=== PATIENT | female | born 2000 | race African-American/Black ===

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

== ENCOUNTER 2023-12-28 07:18 | Inpatient (IN) ==
[2023-12-28 16:51] LABS: BASOPHILS # (AUTO) 0.2 X10^3/uL (0.0-0.1); BASOPHILS % (AUTO) 0.8 % (0.2-1.0); EOSINOPHILS % (AUTO) 0.1 % (0.9-2.9); HEMATOCRIT 27.9 % (36.0-47.0); HEMOGLOBIN 9.2 g/dL (12.0-16.0); LYMPHOCYTES % (AUTO) 9.5 % (21.0-51.0); MEAN CORPUSCULAR HEMOGLOBIN 26.5 pg (27.0-34.0); MEAN CORPUSCULAR HGB CONC 32.8 g/dL (33.0-35.0); MEAN CORPUSCULAR VOLUME 80.7 fL (80.0-100.0); MEAN PLATELET VOLUME 8.4 fL (7.4-11.0); MONOCYTES # (AUTO) 1.2 x10^3/uL (0.3-0.8); MONOCYTES % (AUTO) 5.6 % (0.0-13.0); NEUTROPHILS # (AUTO) 17.5 x10^3/uL (2.2-4.8); PLATELET COUNT 384 X10^3/uL (150.0-450.0); RED BLOOD COUNT 3.46 X10^6/uL (3.5-5.4); RED CELL DISTRIBUTION WIDTH 13.7 % (11.6-16.5); WHITE BLOOD COUNT 20.8 X10^3/uL (3.6-10.0)
[2023-12-28 16:59] LABS: BLOOD UREA NITROGEN 7 mg/dL (7-18); CALCIUM 8.9 mg/dL (8.5-10.1); CARBON DIOXIDE 24.9 mmol/L (21-32); CHLORIDE 103 mmol/L (98-107); GLUCOSE 91 mg/dL (65-99); POTASSIUM 3.5 mmol/L (3.5-5.1); SODIUM 136 mmol/L (136-145); eGFR NON BLACK RACES > 60 (>60)
[2023-12-28 16:59] LABS: BILIRUBIN,URINE NEGATIVE (NEGATIVE); BLOOD/HEMOGLOBIN,URINE 2+ (NEGATIVE); GLUCOSE, URINE NEGATIVE (NEGATIVE); KETONES,URINE NEGATIVE (NEGATIVE); LEUKOCYTE ESTERASE ,URINE NEGATIVE (NEGATIVE); NITRITES,URINE NEGATIVE (NEGATIVE); PROTEIN,URINE 2+ (NEGATIVE); UROBILINOGEN,URINE NORMAL (NORMAL)
[2023-12-28 17:01] LABS: INR 0.99 (0.8-1.3)
[2023-12-28 17:08] LABS: APPEARANCE,URINE SLIGHTLY HAZY (CLEAR); COLOR,URINE YELLOW (YELLOW)
[2023-12-28 17:09] LABS: BACTERIA,URINE TRACE /HPF (NEGATIVE); RBC,URINE 0-2 /HPF (0-3); RENAL EPITHELIAL CELLS,URINE RARE /HPF (NEGATIVE); SQUAMOUS EPITHELIAL CELL,UR FEW /HPF (NEGATIVE)
[2023-12-29] MEDS ORDERED: D5 1/2 NS 1,000 ML 1,000 ML IV SCH (06:28)
[2023-12-29] MEDS: NOZIN NASAL SANITIZER TP ONE (06:29)
[2023-12-29] MEDS: LR 1,000 ML IV 1,000 ML IV ONE (06:45)
[2023-12-29] MEDS: ANCEF VIAL 1 GRAM IVP ONE (07:10)
[2023-12-29] MEDS: NS 100 ML IV 100 ML ONE (07:10)
[2023-12-29] MEDS: XYLOCAINE 2 % (PLAIN) ONE (07:14)
[2023-12-29] MEDS: PEPCID 20 MG VIAL ONE (07:20)
[2023-12-29] MEDS: EPHEDRINE SULFATE INJ ONE (07:20)
[2023-12-29] MEDS: ZOFRAN INJ 4 MG VIAL ONE ×2 (07:20→07:59)
[2023-12-29] MEDS: DILAUDID INJ ONE (07:20)
[2023-12-29] MEDS ORDERED: XYLOCAINE 2 % (PLAIN) ONE (07:20)
[2023-12-29] MEDS: PRECEDEX INJ VIAL ONE (07:20)
[2023-12-29] MEDS: DIPRIVAN VIAL 20 ML ONE (07:44)
[2023-12-29] MEDS: PITOCIN ONE (07:57)
[2023-12-29 08:01] LABS: BILIRUBIN,URINE NEGATIVE (NEGATIVE); BLOOD/HEMOGLOBIN,URINE NEGATIVE (NEGATIVE); GLUCOSE, URINE NEGATIVE (NEGATIVE); KETONES,URINE 1+ (NEGATIVE); LEUKOCYTE ESTERASE ,URINE NEGATIVE (NEGATIVE); NITRITES,URINE NEGATIVE (NEGATIVE); PH,URINE 6.5 (5.0 - 8.0); PROTEIN,URINE 2+ (NEGATIVE); UROBILINOGEN,URINE NORMAL (NORMAL)
[2023-12-29 08:02] LABS: APPEARANCE,URINE CLEAR (CLEAR); COLOR,URINE YELLOW (YELLOW)
[2023-12-29 08:14] LABS: BACTERIA,URINE NEGATIVE /HPF (NEGATIVE); RBC,URINE NONE SEEN /HPF (0-3); SQUAMOUS EPITHELIAL CELL,UR FEW /HPF (NEGATIVE)
[2023-12-29] MEDS: BENADRYL INJ 50 MG VIAL ONE (08:17)
[2023-12-29] MEDS: NARCAN INJ ONE (08:22)
[2023-12-29] MEDS ORDERED: BENADRYL INJ 50 MG VIAL IVP PRN (09:18)
[2023-12-29] MEDS ORDERED: NARCAN INJ IVP PRN (09:18)
[2023-12-29] MEDS ORDERED: D5 1/2 NS 1,000 ML 1,000 ML with PITOCIN 20 UNITS IV SCH (09:18)
[2023-12-29] MEDS ORDERED: ADACEL or BOOSTRIX TDaP VACCINE IM ONE (09:18)
[2023-12-29] MEDS ORDERED: MYLICON TAB 80 MG CHEW PO PRN (09:18)
[2023-12-29] MEDS ORDERED: ZOFRAN INJ 4 MG VIAL IVP PRN (09:18)
[2023-12-29] MEDS ORDERED: PERCOCET TAB 5/325 MG PO PRN (09:18)
[2023-12-29] MEDS ORDERED: REGLAN INJ 10 MG VIAL IVP PRN (09:18)
[2023-12-29] MEDS: TORADOL 30 MG VIAL IVP PRN (13:30)
[2023-12-29] MEDS: PRENATAL PLUS PO SCH (15:24)
[2023-12-30 05:07] LABS: HEMATOCRIT 24.7 % (36.0-47.0); HEMOGLOBIN 7.9 g/dL (12.0-16.0)
[2023-12-30] MEDS: PERCOCET TAB 5/325 MG PO PRN (08:01)
[2023-12-30] MEDS: COLACE CAP 100 MG PO SCH (08:26)
[2023-12-30] MEDS: MOTRIN TAB 800 MG PO PRN (11:50)
[2023-12-30] MEDS: BACTROBAN TOPICAL OINT TOP SCH (13:51)
[2023-12-30] MEDS: FERROUS GLUCONATE PO SCH (17:30)
[2023-12-31] MEDS: DEPO-PROVERA CONTRACEPTIVE INJ IM ONE (08:24)
[2023-12-31 09:46] VITALS: BP 123/67; PULSE 108; RESP 18; TEMP 98.6; O2SAT 95
== END 2023-12-31 10:46 | disposition home or self-care (01) | DRG 787 ==
LOC: LD 12-29 06:13 → MED/SURG 12-29 09:30
PROVIDERS: ADMIT Specialist; ATTEND Specialist
DX: O23.33 Infections of other parts of urinary tract in pregnancy, third trimester; N39.0 Urinary tract infection, site not specified; O99.013 Anemia complicating pregnancy, third trimester; O98.313 Other infections with a predominantly sexual mode of transmission complicating pregnancy, third trimester; O34.211 Maternal care for low transverse scar from previous cesarean delivery; D50.9 Iron deficiency anemia, unspecified; Z3A.39 39 weeks gestation of pregnancy; O13.3 Gestational [pregnancy-induced] hypertension without significant proteinuria, third trimester; Z37.0 Single live birth